=== PATIENT | female | born 1975 | race African-American/Black ===

== ENCOUNTER 2025-03-20 02:12 | Emergency (ER) | payer MEDICAID, OTHER ==
[~2025-03-20] VITALS: Ht 165.1 cm; Wt 68.0 kg
[2025-03-20 02:16] VITALS: BP 142/81
[2025-03-20] MEDS ORDERED: SULFAMETH/TRIMETH 800/160 MG TABLET ONE (03:16)
[2025-03-20] MEDS ORDERED: HYDROCODONE/APAP 5-325MG TABLET ONE (03:16)
[2025-03-20] MEDS ORDERED: HYDR-4209 PO (03:18)
[2025-03-20] MEDS: HYDROCODONE/APAP 5-325MG TABLET PO ONE (03:18)
[2025-03-20] MEDS: SULFAMETH/TRIMETH 800/160 MG TABLET PO ONE (03:18)
[2025-03-20] MEDS ORDERED: SULF1TAB48 PO (03:18)
[2025-03-20 03:39] VITALS: BP 137/71; O2SAT 97
== END 2025-03-20 03:30 | disposition home or self-care (01) ==
LOC: ER 02:20
DX: M26.621 Arthralgia of right temporomandibular joint (principal); N76.2 Acute vulvitis; N76.4 Abscess of vulva; R03.0 Elevated blood-pressure reading, without diagnosis of hypertension
CPT/HCPCS: A4606; A4663